=== PATIENT | male | born 2000 | race Caucasian/White ===

== ENCOUNTER 2021-12-09 13:20 | Emergency (ER) | payer BC, SELFPAY ==
[2021-12-09 13:27] VITALS: BP 149/95; PULSE 102; RESP 20; TEMP 37.2; O2SAT 100
--- NOTE | 2021-12-09 13:55 | ECG_ITS ---
Measurements Intervals [place] Rate: 114 P: 56 VA: 116 QRS: 37 QRSD: 98 T: 39 QT: 313 QTc: 432 Interpretive Statements SINUS TACHYCARDIA WITH SHORT VA INTERVAL ABNORMAL RHYTHM ECG NO PREVIOUS ECG AVAILABLE FOR COMPARISON Electronically Signed On 12-10-2021 10:44:51 CDT by Fam Hensley M.D.
--- NOTE | 2021-12-09 14:03 | ED.URI ---
HPI - URI/Sore Throat General Chief Complaint: Upper Respiratory Infection Stated Complaint: Shortness of Breath,Light Headed Time Seen by Provider: 12/09/21 13:35 Source: patient Mode of arrival: ambulatory Limitations: no limitations History of Present Illness HPI Narrative: Mr. Villarreal is a 20-year-old male patient presenting to clinic today with complaints of shortness of breath and dizziness x1 day. He reports he took a COVID test this morning and it was negative. He states that it is hard to get a deep breath in. No history of asthma or COPD. He is a non-smoker. He just started fluoxetine 2 weeks ago. States that when he gets up quickly he gets dizzy, has a history of anxiety and seasonal allergies. He denies any known exposure to anybody with COVID, flu, or strep. Related Data Home Medications Medication Instructions Recorded Confirmed fluvoxamine 100 mg 100 mg PO QHS 11/26/21 12/09/21 capsule,extended release 24 hr pantoprazole 40 mg tablet,delayed 40 mg PO QAM 11/26/21 12/09/21 release fluoxetine 20 mg capsule (Prozac) 20 mg PO DAILY 11/27/21 12/09/21 Allergies Allergy/AdvReac Type Severity Reaction Status Date / Time No Known Allergies Allergy Verified 12/09/21 13:27 Review of Systems Review of Systems: Pertinent positives per HPI. Patient denies any fever, chills, rash, headache, visual changes, cough, chest pain, palpitations, nausea, vomiting, diarrhea, constipation, abdominal pain, or any urinary issues. [facility] Past Medical History Medical History Allergic rhinitis Anxiety GERD (gastroesophageal reflux disease) Hypertension WM (obstructive sleep apnea) Surgical History Surgical History H/O colonoscopy H/O wisdom tooth extraction Family History Family History Grandparent Cancer Thyroid disorder Mother Hypertension Depression Father Hypertension Depression Social History Social History Smoking status: Never smoker Alcohol intake: current Substance use: never Agree to blood products: Yes Comments At the time of my signature, I reviewed and agree with the nursing past medical, surgical, social, and family history. There is no relevant family history pertinent to the patient complaint. Exam Narrative: General: Well-developed, obese, in no apparent distress Head: Normocephalic, atraumatic Eyes: Pupils equally round and reactive to light bilaterally, EOM intact, sclera and conjunctive clear, no discharge, lids normal Ears: TMs intact and clear, ear canals clear, no drainage, grossly hearing normal. Nose: Nares patent, no discharge, no inflammation, no sinus tenderness. Mouth: Oral pharynx without lesions or masses, good dentition, MMM. Neck: Supple, trachea midline, no enlargement of anterior or posterior cervical nodes, no thyroid masses or goiter palpable. Cardio: Regular rate and rhythm, s1 and s2 normal, no murmur appreciated. Resp: Clear to auscultation bilaterally, no rhonchi, rales, wheezing or rubs Course Course Emergency Course: Portions of this record may have been created with voice recognition software. Level of Care: Express Care Visit Vital Signs Vital signs: Vital Signs Temperature 37.2 C 12/09/21 13:27 Pulse Rate 102 H 12/09/21 13:27 Respiratory Rate 20 12/09/21 13:27 Blood Pressure 149/95 H 12/09/21 13:27 Pulse Oximetry 100 12/09/21 13:27 Oxygen Delivery Room Air 12/09/21 13:27 Temperature 37.2 C 12/09/21 13:27 Pulse Rate 102 H 12/09/21 13:27 Respiratory Rate 20 12/09/21 13:27 Blood Pressure 149/95 H 12/09/21 13:27 Pulse Oximetry 100 12/09/21 13:27 Oxygen Delivery Room Air 12/09/21 13:27 Vital signs reviewed MDM - URI/Sore Throat MDM Na
== END 2021-12-09 14:10 | disposition home or self-care (01) ==
PROVIDERS: Emergency Provider Nurse Practitioner Family; PCP Family Medicine
DX: F41.9 Anxiety disorder, unspecified (principal); R06.02 Shortness of breath; K21.9 Gastro-esophageal reflux disease without esophagitis; I10 Essential (primary) hypertension; G47.33 Obstructive sleep apnea (adult) (pediatric)
CPT/HCPCS: 93005; 99213; G0463

== ENCOUNTER 2021-12-10 12:13 | Emergency (ER) | payer BC, SELFPAY ==
[2021-12-10] VITALS (7 sets, daily range): BP systolic 158–180; BP diastolic 95–110; PULSE 89–115; RESP 11–17; TEMP 36.2; O2SAT 99–100
--- NOTE | ~2021-12-10 | XR_ITS ---
EXAMINATION: XR chest 2V DATE: 12/10/2021 13:31 INDICATION: Shortness of breath TECHNIQUE: PA and lateral views of the chest are obtained. COMPARISON: None available FINDINGS: The lungs are free of acute opacities. No pleural effusion or pneumothorax. The cardiomedia stinal silhouette is normal. The visualized bones and soft tissues are unremarkable. IMPRESSION: 1. No acute cardiopulmonary abnormality. Reviewed, dictated and finalized at location A.
--- NOTE | 2021-12-10 12:25 | ECG_ITS ---
Measurements Intervals [place] Rate: 112 P: 110 TN: 143 QRS: 147 QRSD: 101 T: 134 QT: 312 QTc: 428 Interpretive Statements SINUS TACHYCARDIA ARM LEADS REVERSED Electronically Signed On 12-10-2021 12:58:39 CDT by Fam Hensley M.D.
--- NOTE | 2021-12-10 12:47 | ED.ARRPALP ---
HPI - Arrhythmia/Palpitations General Chief Complaint: Arrhythmia/Palpitations Stated Complaint: lightheaded/high hr Time Seen by Provider: 12/10/21 12:41 History of Present Illness HPI narrative: 20-year-old male with a history of anxiety, HTN here for evaluation of palpitations for the past week. Patient reports his heart rate has been elevated for the past week for nearly all of the day. Additionally, he has had some chest discomfort in the center of his chest, worse when he pushes on it, and some trouble getting a deep breath in. Denies exertional chest pain or dyspnea, fevers, chills, cough, hemoptysis, hx of DVT. Related Data Home Medications Medication Instructions Recorded Confirmed fluvoxamine 100 mg 100 mg PO QHS 11/26/21 12/09/21 capsule,extended release 24 hr pantoprazole 40 mg tablet,delayed 40 mg PO QAM 11/26/21 12/09/21 release fluoxetine 20 mg capsule (Prozac) 20 mg PO DAILY 11/27/21 12/09/21 Allergies Allergy/AdvReac Type Severity Reaction Status Date / Time No Known Allergies Allergy Verified 12/09/21 13:27 [facility] Past Medical History Medical History Allergic rhinitis Anxiety GERD (gastroesophageal reflux disease) Hypertension WM (obstructive sleep apnea) Surgical History Surgical History H/O colonoscopy H/O wisdom tooth extraction Family History Family History Grandparent Cancer Thyroid disorder Mother Hypertension Depression Father Hypertension Depression Social History Social History Smoking status: Never smoker Alcohol intake: current Substance use: never Agree to blood products: Yes Exam Narrative: APPEARANCE: Well appearing, no pain in distress, well-nourished. Head: Normocephalic and atraumatic. EYES: PERRLA/EOMI, conjunctivae clear NOSE: No nasal drainage EARS: External ear normal in appearance THROAT: Oropharynx is clear. Mucous membranes are moist. NECK: Supple. No adenopathy, no masses. RESPIRATORY: Airway patent, respirations nonlabored. Clear to auscultation bilaterally, no rales, rhonchi, wheezing. CARDIOVASCULAR: Reproducible chest pain on palpation. Tachycardic. Regular rhythm without murmurs, rubs, or gallops. ABDOMINAL: Normoactive bowel sounds. Soft, nontender, nondistended. No rebound tenderness or guarding. MUSCULOSKELETAL: Extremities are warm and well-perfused. Moves all extremities well. No edema. NEURO: Normal speech. No focal neurologic deficits. SKIN: Skin is warm and dry. No rashes. PSYCHIATRIC: Normal affect/mood. Course Vital Signs Vital signs: Vital Signs Temperature 36.2 C L 12/10/21 12:18 Pulse Rate 89 12/10/21 12:18 Respiratory Rate 16 12/10/21 12:18 Blood Pressure 158/107 H 12/10/21 12:18 Pulse Oximetry 100 12/10/21 12:18 Oxygen Delivery Room Air 12/10/21 12:18 Temperature 36.2 C L 12/10/21 12:18 Pulse Rate 93 12/10/21 15:03 Respiratory Rate 16 12/10/21 15:03 Blood Pressure 163/95 H 12/10/21 15:03 Pulse Oximetry 99 12/10/21 15:03 Oxygen Delivery Room Air 12/10/21 12:18 MDM - Arrhythmia/Palpitations MDM Narrative Medical decision making narrative: 20-year-old male here for evaluation of palpitations, anxiety and shortness of breath. Patient is hypertensive, he has been tachycardic in the low 100s; EKG is in sinus tachycardia (leads reversed). His heart and lungs are clear to auscultation; does have reproducible chest discomfort on palpation of chest. CBC and CMP normal, dimer negative so doubt PE, chest x-ray is clear. Very low suspicion for ACS given patient's age, reproducible nature of chest pain. discussed case with patient's PCP, will set up patient with Holter monitor and add on metoprolol given his elevated blood pressure a
[2021-12-10 13:27] LABS: Basophils Percent Auto 0.4 % (0.2-1.2); Eosinophils Absolute Auto 0.1 K/mm3 (0-0.3); Eosinophils Percent Auto 1.1 % (0-4.4); Hematocrit 45.5 % (42.0-52.0); Hemoglobin 15.4 g/dL (14.0-18.0); Immature Granulocyte Absolute 0.01 K/mm3 (0.00-0.031); Immature Granulocyte Percent A 0.2 % (0-0.5); Lymphocytes Absolute Auto 1.87 K/mm3 (0.9-3.2); Lymphocytes Percent Auto 35.3 % (18.3-44.2); Mean Corpuscular HGB Conc 33.8 g/dl (32-36); Mean Corpuscular Hemoglobin 28.3 pg (26-34); Mean Corpuscular Volume 83.6 fl (80-100); Mean Platelet Volume 9.9 fl (7.4-10.4); Monocytes Absolute Auto 0.4 K/mm3 (0.1-0.6); Monocytes Percent Auto 7.8 % (2.6-8.5); Neutrophils Absolute Auto 2.9 K/mm3 (1.3-6.7); Neutrophils Percent Auto 55.2 % (45.5-73.1); Platelet Count Result 336 k/mm3 (150-375); Red Blood Count 5.44 M/mm3 (4.6-6.20); Red Cell Distribution Width 12.6 % (11.5-14.5); White Blood Count 5.3 K/mm3 (4.5-10.0)
[2021-12-10 13:38] LABS: Alanine Aminotransferase 38 U/L (6-50); Alkaline Phosphatase 95 U/L (38-126); Anion Gap 7 mmol/L (8-16); Aspartate Amino Transferase 31 U/L (17-59); Bilirubin,Total 0.6 mg/dL (0.2-1.3); Blood Urea Nitrogen 16 mg/dL (9-20); Calcium 9.7 mg/dL (8.4-10.2); Carbon Dioxide 25 mmol/L (22-30); Chloride 104 mmol/L (98-107); Estimated CRCL calculation 134 ml/min; Estimated Glomerular Filt Rate > 60; Glucose 111 mg/dL (65-110); Potassium 4.3 mmol/L (3.4-5.0); Sodium 136 mmol/L (137-145)
[2021-12-10 13:45] LABS: D Dimer 0.22 ug/mL (<0.48)
--- NOTE | 2021-12-13 12:41 | P.PCNHOL_ITS ---
Holter/Event Monitor Holter/Event Monitor Date of procedure: 12/10/21 Holter/Event Procedure: 24 Hr Holter Monitor Indications: Palpitations Conclusion: 1. 24 hour holter monitor on 12/10/21. 2. Underlying rhythm is sinus rhythm. HR range 45-167 bpm; average HR 87 bpm. HR at 167 bpm was at 16:08. 3. There is 1 premature supraventricular complex. No supraventricular tachycardia. 4. No premature ventricular complexes. No ventricular tachycardia. 5. No sinoatrial or atrioventricular blocks. No significant pauses greater than 2 seconds. 6. Patient reports symptoms of shortness of breath, stomach pain, chest discom fort which demonstrate sinus rhythm, HR range 87-130 bpm.
== END 2021-12-10 15:04 | disposition home or self-care (01) ==
PROVIDERS: Physician Assistant; Emergency Provider Emergency Medicine; PCP Family Medicine
DX: F41.9 Anxiety disorder, unspecified (principal); R00.0 Tachycardia, unspecified; I10 Essential (primary) hypertension; K21.9 Gastro-esophageal reflux disease without esophagitis; G47.33 Obstructive sleep apnea (adult) (pediatric)
CPT/HCPCS: 36415; 71046; 80053; 85025; 85380; 93005; 93225; 93226; 99284

== ENCOUNTER 2021-12-12 09:36 | Outpatient (CLI) | payer BC, SELFPAY ==
--- NOTE | ~2021-12-12 | US_ITS ---
US abdomen complete DATE: 12/12/2021 11:04 INDICATION: Abdominal pain TECHNIQUE: Real-time imaging of abdomen, Doppler analysis COMPARISON: None FINDINGS: The abdominal aorta is of normal caliber. No hepatic space-occupying mass lesion is evident. Normal hepatopedal portal venous flow direction. No gallstones or gallbladder wall thickening. Negative sonographic Branch's sign. The pancreas is obscured by bowel gas. The common bile duct measures 4 mm, normal. The right kidney measures approximately 10 cm length, left kidney approximately 10.4 cm length. No re nal mass lesion or hydronephrosis. Splenic size is within normal limits. IMPRESSION: Pancreas is obscured; otherwise unremarkable examination Reviewed, dictated and finalized at Location [facility]. Reviewed, dictated and finalized at location B.
== END 2021-12-12 09:37 | disposition home or self-care (01) ==
PROVIDERS: PCP Family Medicine; Visit Provider Family Medicine
DX: R10.9 Unspecified abdominal pain (principal)
CPT/HCPCS: 76700

== ENCOUNTER 2021-12-20 07:27 | Outpatient (CLI) | payer BC, SELFPAY ==
--- NOTE | 2021-12-27 20:14 | WPDSLEEPSTUD ---
Sleep Study Date of Study: 12/20/21 Ordering Provider: Ana M Franklin DO Interpreting Physician: Terese Cabral DO Sleep Study Type: BiPAP Titration Height: 1.88 m Weight: 122.47 kg Body Mass Index: 34.7 Neck Circumference (inches): 19 [place]: 8 Reason for Sleep Study The patient had a diagnostic PSG at [facility] on 09/04/2021 that showed an overall AHI of 19.4 and a REM AHI of 294 with desaturation down to 81%. He was recommended to get a tonsillectomy by a local ENT physician and then repeat a sleep study. The patient saw Dr. Wilson and it was recommended to do a CPAP trial rather than a tonsillectomy. Sleep History The patient is a 21-year-old male with hypertension, GERD, anxiety, obsessive-compulsive disorder and moderate sleep apnea that had a Pap Titration study ordered by his primary care physician. The patient occasionally awakens from sleep short of breath. He frequently awakens at night with heartburn, belching or cough. He constantly snores loud enough that others complain. He frequently has trouble sleeping when he has a cold. He frequently wakes up gasping for air throughout the night. He frequently has breathing problems at night observed by himself or others. He rarely sweats excessively at night. He rarely has heart palpitations or irregular heartbeats during the night. He rarely falls asleep during the day but never while driving. He denies sleep paralysis, cataplexy and hypnagogic / hypnopompic hallucinations. He occasionally has trouble at school or work due to sleepiness. He rarely has nightmares and rarely remembers his dreams. He occasionally has thoughts racing through his mind. He denies feeling sad or depressed. He frequently has anxiety. He rarely has muscular tension. He denies noticing parts of his body jerk. He denies kicking during the night. He denies having crawling and aching feelings in his legs as well as leg pain during the night. He denies grinding his teeth during sleep and awakening with morning jaw pain. He occasionally is bothered by pain during the day but never awakened by pain during the night. He denies waking up feeling stiff in morning. He denies waking up with sore achy muscles. He rarely wakes up with pain in the neck, spine and other joints. He goes to bed at midnight on weekdays and 3:00 a.m. on the weekends. It takes him 10-20 minutes to fall asleep. He will wake at most once per night for unknown reasons. He will take him 10 minutes to fall back asleep. He wakes up at 9:00 a.m. on weekdays and 11:00 a.m. on the weekends. He typically gets 5-8 hours of sleep per night. He will stay in bed for 30 minutes after waking up in the morning. He currently lives with his parents. He does not consume any caffeinated beverages within 2 hours of bedtime. He does not engage in physical exercise before bedtime. He watches television before falling asleep. He will take naps in the afternoon or the evening which are refreshing. He drinks 4-5 caffeinated beverages per day. He will drink 1-2 alcoholic beverages per month. He denies tobacco and recreational drug use. [facility] Past Medical History Medical History Allergic rhinitis Anxiety GERD (gastroesophageal reflux disease) Hypertension WM (obstructive sleep apnea) Surgical History Surgical History H/O colonoscopy H/O wisdom tooth extraction Family History Family History Grandparent Cancer Thyroid disorder Mother Hypertension Depression Father Hypertension Depression Social History Social History Smoking status: Never smoker Alcohol intake: current Substance use: never Agree to blood products: Yes Medications Home Medications Medication
[2021-12-27 23:12] VITALS: BMI 34.7
== END 2021-12-21 07:12 | disposition home or self-care (01) ==
LOC: ANHCSM 07:29
PROVIDERS: PCP Family Medicine; Visit Provider Family Medicine
DX: G47.33 Obstructive sleep apnea (adult) (pediatric) (principal)
CPT/HCPCS: 95811